=== PATIENT | female | born 1970 | race Caucasian/White ===

== ENCOUNTER 2017-11-11 20:05 | Observation (INO) | payer OTHER ==
[~2017-11-11] VITALS: Ht 154.9 cm; Wt 68.0 kg
[2017-11-11] MEDS ORDERED: ONDANSETRON HCL INJ 2 MG/ML VIAL IV STA (20:07)
[2017-11-11 20:35] LABS: BASOPHILS % 0.2 % (0.0-1.0); EOSINOPHILS % 0.2 % (0.0-6.0); HEMATOCRIT 38.3 % (34.2-44.1); HEMOGLOBIN 13.2 g/dL (12.0-16.0); LYMPHOCYTES # (AUTO) 1.8 (1.0-3.2); LYMPHOCYTES % 10.8 % (18.0-39.1); MEAN CORPUSCULAR HEMOGLOBIN 31.7 pg (28-32); MEAN CORPUSCULAR HGB CONC 34.5 g/dL (31-35); MEAN CORPUSCULAR VOLUME 91.8 fL (81-99); MONOCYTES # (AUTO) 0.6 (0.2-0.8); MONOCYTES % 3.4 % (4.4-11.3); NEUTROPHILS # (AUTO) 13.7 (2.1-6.9); NEUTROPHILS % 84.9 % (38.7-80.0); PLATELET COUNT 257 x10e3/uL (140-360); RED BLOOD COUNT 4.17 x10e6/uL (3.6-5.1); RED CELL DISTRIBUTION WIDTH 12.2 % (11.7-14.4)
[2017-11-11 20:45] LABS: INR 1.09; PROTHROMBIN TIME 13.3 seconds (11.9-14.5)
[2017-11-11 20:46] LABS: PARTIAL THROMBOPLASTIN TIME 23.7 seconds (23.8-35.5)
[2017-11-11 20:56] LABS: ALANINE AMINOTRANSFERASE 19 IU/L (0-55); ALBUMIN 3.6 g/dL (3.5-5.0); ALBUMIN/GLOBULIN RATIO 0.9 (0.8-2.0); ALKALINE PHOSPHATASE 75 IU/L (40-150); ANION GAP 16.4 mmol/L (8-16); BLOOD UREA NITROGEN 10 mg/dL (7-26); BUN/CREATININE RATIO 13 (6-25); CALCIUM 9.2 mg/dL (8.4-10.2); CARBON DIOXIDE 23 mmol/L (22-29); CHLORIDE 104 mmol/L (98-107); CREATINE KINASE 134 IU/L (29-168); CREATININE, SERUM 0.79 mg/dL (0.57-1.11); EST GLOMERULAR FILTRATION RATE > 60 ML/MIN (60-); GLUCOSE 162 mg/dL (74-118); MAGNESIUM 1.6 MG/DL (1.3-2.1); POTASSIUM 3.4 mmol/L (3.5-5.1); SODIUM 140 mmol/L (136-145)
--- NOTE | 2017-11-11 21:55 | Diagnostic Imaging Report ---
EXAMINATION: Head CT without contrast. HISTORY:Dizziness. COMPARISON:None. TECHNIQUE: Multidetector axial images were obtained from the foramen magnum to the vertex without contrast. The images were reconstructed using brain and bone algorithms. Thin section brain images were reformatted into coronal and sagittal planes. Dose modulation, iterative reconstruction, and/or weight based adjustment of the mA/kV was utilized to reduce the radiation dose to as low as reasonably achievable. Intravenous contrast: None IMAGE QUALITY: Acceptable. FINDINGS: Skull/scalp: No lytic or blastic. lesions. No surgical changes. Parenchyma: No abnormal density. No acute hemorrhage, mass or acute major vascular territorial infarct. Arteries: No density suggestive of thrombosis. Dural sinuses: No abnormal density suggestive of thrombosis. Ventricles: No hydrocephalus or displacement. Extra-axial spaces: No abnormal density. Brain volume: Normal for age. Craniocervical junction: No mass, Chiari malformation, or basilar invagination. Sella: No mass. Paranasal/mastoid sinuses: Imaged portions unremarkable. IMPRESSION: No intracranial abnormality. Signed by: Dr. Susie Stock M.D. on 11/11/2017 9:52 PM
[2017-11-11] MEDS ORDERED: MECLIZINE HCL 12.5 MG TAB PO ONE (22:00)
[2017-11-11] MEDS ORDERED: SODIUM CHLORIDE 0.9% 1000ML 1,000 ML IV SCH (22:00)
--- NOTE | 2017-11-11 22:13 | Diagnostic Imaging Report ---
CHEST SINGLE (PORTABLE), 11/11/2017 8:07 PM Technique: CHEST SINGLE (PORTABLE) Comparison: None available. Clinical history: Dizziness, emesis Findings: Unremarkable portable appearance of the heart, mediastinum, lungs and pleural spaces. Prominent heart size likely due to technique. Impression: 1. Lines/Tubes: None 2. No acute abnormality. Signed by: Dr Rach Prince MD on 11/11/2017 10:10 PM
[2017-11-11] MEDS ORDERED: SODIUM CHLORIDE 0.9% 1000ML 1,000 ML ONE (22:20)
[2017-11-12 00:21] LABS: PREGNANCY TEST, URINE NEGATIVE (NEGATIVE)
[2017-11-12 00:22] LABS: AMPHETAMINES SCREEN,URINE NEGATIVE (NEGATIVE); BENZODIAZEPINES SCREEN,URINE NEGATIVE (NEGATIVE); PHENCYCLIDINE SCREEN,URINE NEGATIVE (NEGATIVE)
[2017-11-12 00:25] LABS: CLARITY,URINE CLEAR (CLEAR); COLOR,URINE YELLOW (YELLOW); LEUKOCYTE ESTERASE ,URINE NEGATIVE (NEGATIVE); NITRITE,URINE NEGATIVE (NEGATIVE); PROTEIN,URINE DIPSTICK NEGATIVE (NEGATIVE)
[2017-11-12 00:26] LABS: BILIRUBIN,URINE NEGATIVE (NEGATIVE); KETONES,URINE 2+ (NEGATIVE); URINE UROBILINOGEN 0.2 mg/dL (0.2 - 1)
[2017-11-12 00:37] LABS: BACTERIA,URINE MODERATE /HPF; RBC,URINE 0-5 /HPF (0-5)
[2017-11-12 00:38] LABS: EPITHELIAL CELLS,URINE FEW /LPF; WBC,URINE (MAN) 0-5 /HPF (0-5)
[2017-11-12] MEDS ORDERED: HYDRALAZINE HCL 20 MG/ML VIAL IV PRN (00:45)
[2017-11-12] MEDS ORDERED: ONDANSETRON HCL INJ 2 MG/ML VIAL IV PRN (00:45)
[2017-11-12] MEDS ORDERED: MECLIZINE HCL 12.5 MG TAB PO PRN (01:00)
[2017-11-12] MEDS: FAMOTIDINE 20 MG/2 ML VIAL IV SCH ×2 (01:45→12:18)
[2017-11-12] MEDS ORDERED: METOPROLOL TART50 MG PO ×2 (01:48→14:20)
[2017-11-12 02:34] VITALS: BP 148/84
[2017-11-12 03:39] VITALS: BP 148/84
[2017-11-12 04:00] VITALS: BP 169/87
[2017-11-12 06:43] LABS: BASOPHILS % 0.1 % (0.0-1.0); EOSINOPHILS % 0.1 % (0.0-6.0); HEMATOCRIT 36.5 % (34.2-44.1); HEMOGLOBIN 12.7 g/dL (12.0-16.0); LYMPHOCYTES # (AUTO) 1.7 (1.0-3.2); LYMPHOCYTES % 17.1 % (18.0-39.1); MEAN CORPUSCULAR HEMOGLOBIN 32.2 pg (28-32); MEAN CORPUSCULAR HGB CONC 34.8 g/dL (31-35); MEAN CORPUSCULAR VOLUME 92.4 fL (81-99); MONOCYTES # (AUTO) 0.4 (0.2-0.8); MONOCYTES % 4.3 % (4.4-11.3); NEUTROPHILS # (AUTO) 7.9 (2.1-6.9); NEUTROPHILS % 77.9 % (38.7-80.0); PLATELET COUNT 225 x10e3/uL (140-360); RED BLOOD COUNT 3.95 x10e6/uL (3.6-5.1); RED CELL DISTRIBUTION WIDTH 12.1 % (11.7-14.4)
[2017-11-12 07:06] LABS: CREATINE KINASE 119 IU/L (29-168)
[2017-11-12 07:07] LABS: ANION GAP 13.8 mmol/L (8-16); BLOOD UREA NITROGEN 7 mg/dL (7-26); BUN/CREATININE RATIO 10 (6-25); CALCIUM 8.6 mg/dL (8.4-10.2); CARBON DIOXIDE 23 mmol/L (22-29); CHLORIDE 106 mmol/L (98-107); CREATININE, SERUM 0.68 mg/dL (0.57-1.11); EST GLOMERULAR FILTRATION RATE > 60 ML/MIN (60-); GLUCOSE 113 mg/dL (74-118); POTASSIUM 3.8 mmol/L (3.5-5.1); SODIUM 139 mmol/L (136-145)
[2017-11-12 07:45] VITALS: BP 153/67
[2017-11-12] MEDS ORDERED: D5.45%NS/KCL 20MEQ 1,000 ML IV SCH (08:30)
[2017-11-12 11:17] VITALS: BP 162/81
--- NOTE | 2017-11-12 13:19 | Diagnostic Imaging Report ---
EXAMINATION: MRI of the brain without contrast. HISTORY: Dizziness, vertigo, nausea and vomiting, sinus bradycardia COMPARISON: Head CT on 11/11/2017 TECHNIQUE: Sagittal T2; axial DWI, T2, FLAIR, T1-IR, T2 gradient echo; coronal FLAIR. IMAGE QUALITY: Adequate. FINDINGS: Parenchyma: 1. No abnormal signal intensity 2. No mass, hemorrhage, acute or chronic infarcts. Skull: Unremarkable. Vessels: Expected flow voids present in the major arteries and dural sinuses. Extra-axial spaces: No abnormal signal intensity or mass effect. Brain volume: Within normal limits for age. Ventricles: No hydrocephalus or displacement. Foramen magnum: Unremarkable. Sella: Unremarkable. Paranasal / mastoid sinuses: No significant inflammatory disease. IMPRESSION: Normal brain MRI, particularly no posterior fossa abnormalities. Signed by: Dr. Miesha Mendez M.D. on 11/12/2017 1:16 PM
[2017-11-12] MEDS ORDERED: HYDROCHLOROTHIA25 MG PO (14:20)
[2017-11-12] MEDS ORDERED: MECLIZINE HCL12.5 MG PO (14:20)
--- NOTE | 2017-11-12 15:50 | History and Physical ---
SHORTSTAY SUMMARY PCP: None. ADMITTING DIAGNOSES 1. Benign vertigo. 2. Uncontrolled hypertension. 3. Drug-induced bradycardia. DISCHARGE DIAGNOSES 1. Benign vertigo. 2. Uncontrolled hypertension. 3. Drug-induced bradycardia. BRIEF HISTORY: Ms. Albert is a 47-year-old lady who takes metoprolol that she orders online. She does not have a PCP, is not being followed by a doctor. She orders metoprolol online to treat her blood pressure which apparently is not under good control. She presents with 24 hours of sudden onset vertigo which has improved since its onset. REVIEW OF SYSTEMS: She denies fever, chills, or weight loss. She denies sinus congestion or sore throat. She denies chest pain or palpitations. She denies shortness of breath, wheezing, or cough. She denies abdominal pain, nausea, vomiting, or melena. She denies dysuria or flank pain. She denies rash or pruritus. She denies bleeding or bruising. She denies headache. She reports vertigo. She denies loss of consciousness. She denies depression, agitation, homicidal or suicidal ideation. PAST MEDICAL HISTORY: Significant for hypertension for which she takes metoprolol 50 mg daily. ALLERGIES: SHE HAS NO KNOWN DRUG ALLERGIES. FAMILY HISTORY: Unremarkable. SOCIAL HISTORY: The patient is . Kisw[place]ili is her primary language. She does smoke, drink, or use illegal drugs and she is generally independently functioning. PHYSICAL EXAM PSYCHIATRIC: She is alert and oriented x3 with normal mood and affect. CONSTITUTIONAL: She has a normal body habitus. She is in no acute distress. VITAL SIGNS: Blood pressure initially 168/100, currently 162/81; pulse originally 58, currently 58; respiratory rate 20; O2 sat 99%; temperature 96.6. HEENT: Her head is atraumatic. Her eyes are anicteric with clear conjunctivae. Ears and nares are without erythema or discharge. Oropharynx is clear. NECK: Supple with no mass or thyromegaly. LYMPHATIC SYSTEM: She has no palpable cervical, axillary, or inguinal adenopathy. CARDIOVASCULAR: Her heart has regular rate and rhythm without murmur or extra heart sounds. She has no carotid bruit. She has no peripheral edema. She has palpable dorsal pedal pulse. RESPIRATORY: Lungs are clear to auscultation and percussion with normal respiratory effort. GASTROINTESTINAL: Her abdomen is soft without organomegaly, masses, or tenderness. She has normal bowel sounds present. CUTANEOUS: Her skin is warm and dry to touch with no rash or skin breakdown. MUSCULOSKELETAL: Her joints are in normal alignment without erythema or swelling. She has no calf tenderness. NEUROLOGIC: Nonfocal with intact cranial nerves and no motor or sensory deficits. DIAGNOSTIC STUDIES: Chest x-ray shows no acute disease. CT scan and MRI of the brain both show no acute disease. Carotid ultrasound shows some nonocclusive plaques at the bulb. Her UA has moderate bacteria, but negative leukocyte esterase or nitrites. Her UDS is negative. Troponin less than 0.001 and less than 0.001. Her CBC shows a white count of 16.6 with 85% neutrophils, 11% lymphocytes, hemoglobin 13.2, hematocrit 38.3, and platelet count 257,000. Chemistry shows normal electrolytes, CO2 of 23, creatinine 0.68, BUN 7, and glucose 113. Transaminases, bilirubin, and alk phos are normal. IMPRESSION AND PLAN 1. Benign vertigo. The patient responded well to meclizine and her workup is negative. 2. Uncontrolled hypertension. We will continue metoprolol and add hydrochlorothiazide. 3. Drug-induced bradycardia. The patient was warned not to take extra metoprolol. We will add hydrochlorothiazide for better blood pressure control. 4. For prophylaxis, she has been on Pepcid for gastrointestinal prophylaxis and sequential compression devices for deep vein thrombosis prophylaxis. HOSPITAL COURSE: The patient was admitted overnight. Her cardiac enzymes were negative. Her blood pressure came under better control with some IV hydralazine. She will be discharged home to continue her metoprolol 50 mg daily along with hydrochlorothiazide 12.5 mg daily and meclizine as needed for the vertigo. She can resume her regular diet, activity as tolerated, and she can follow up with me in clinic within 2 weeks. Job#: [id number] VAS
== END 2017-11-12 15:06 | disposition home or self-care (01) ==
LOC: ER 20:05 → ERHOLD 11-12 01:06 → IMCU 11-12 02:35
PROVIDERS: ADMIT Internal Medicine; ATTEND Internal Medicine
DX: H81.13 Benign paroxysmal vertigo, bilateral (principal); R00.1 Bradycardia, unspecified; T44.7X5A Adverse effect of beta-adrenoreceptor antagonists, initial encounter; I10 Essential (primary) hypertension
CPT/HCPCS: 36415 ×2; 70450; 70551; 71045; 80048; 80053; 80307; 81001; 81025; 82550 ×2; 82553 ×2; 83690; 83735; 84484 ×2; 85025 ×2; 85610; 85730; 87086; 93005; 93880; 97139; 99284; G0378; J2405; J7030